=== PATIENT | female | born 1980 | race Caucasian/White ===

== ENCOUNTER 2018-09-07 12:40 | Emergency (ER) | payer OTHER ==
[2018-09-07 12:47] VITALS: BMI 30.2
[2018-09-07] MEDS ORDERED: Lidocaine 5% Patch TD STA (12:55)
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
[2018-09-07 15:33] VITALS: BP 126/72; PULSE 82; RESP 16; TEMP 98.2; O2SAT 97
== END 2018-09-07 15:34 | disposition home or self-care (01) ==
LOC: ED 12:40
DX: S13.4XXA Sprain of ligaments of cervical spine, initial encounter (principal); V49.9XXA Car occupant (driver) (passenger) injured in unspecified traffic accident, initial encounter; Y92.481 Parking lot as the place of occurrence of the external cause